=== PATIENT | male | born 1980 | race Caucasian/White ===

== ENCOUNTER 2019-12-05 03:50 | Emergency (ER) | payer OTHER ==
--- NOTE | 2019-12-05 03:54 | NUR ---
PT NOT IN WAITING ROOM FOR TRIAGE.
--- NOTE | 2019-12-05 03:56 | NUR ---
PT NOT IN WAITING ROOM FOR TRIAGE.
--- NOTE | 2019-12-05 04:00 | NUR ---
PT NOT IN WAITING ROOM FOR TRIAGE.
--- NOTE | 2019-12-05 04:26 | NUR ---
PT NOT IN WAITING ROOM FOR TRIAGE.
== END 2019-12-05 04:26 | disposition home or self-care (01) ==
LOC: ER 03:50
DX: Z53.21 Procedure and treatment not carried out due to patient leaving prior to being seen by health care provider (principal)